=== PATIENT | female | born 1950 | race Caucasian/White ===

== ENCOUNTER 2024-02-15 08:00 | Outpatient (CLI) | payer MEDICAID, MEDICARE ==
--- NOTE | 2024-02-15 13:49 | XRAY Report ---
PROCEDURE: Chest 2V INDICATIONS: SHORTNESS OF BREATH/ASTHMA TECHNIQUE: 2 views of the chest were acquired. COMPARISON: None. FINDINGS: Surgical changes and devices: None. Lungs and pleura: No pleural effusions or pneumothorax. Lungs are borderline hyperexpanded and tu r. Mediastinum: Mediastinal contours appear normal. Heart size is normal. Bones and chest wall: No suspicious bony lesions. Overlying soft tissues appear unremarkable. IMPRESSION: No acute cardiopulmonary process. Reviewed by: Young Vann MD on 02/15/2024 1:48 PM PDT Approved by: Young Vann MD on 02/15/2024 1:48 PM PDT Station ID: [id number]
== END 2024-02-15 23:59 | disposition home or self-care (01) ==
LOC: DI.S 08:00
PROVIDERS: ATTEND Emergency Medicine
DX: J45.901 Unspecified asthma with (acute) exacerbation (principal)

== ENCOUNTER 2024-02-15 12:36 | Outpatient (CLI) | payer MEDICARE, MEDICAID | END 2024-02-15 23:59 | disposition critical access hospital (66) | LOC: EMS 12:36 | DX: R06.02 Shortness of breath (principal); R06.2 Wheezing; Z59.02 Unsheltered homelessness | CPT/HCPCS: A0425; A0427 ==

== ENCOUNTER 2024-02-15 13:11 | Emergency (ER) | payer MEDICARE, MEDICAID ==
[2024-02-15 13:40] VITALS: BP 116/48; O2SAT 95
--- NOTE | 2024-02-15 13:41 | ED Physician Documentation ---
History of Present Illness - Stated complaint Stated Complaint: SOA - Chief complaint Chief Complaint: Resp - History obtained from History obtained from: Patient, EMS - Additonal information Additional information: The patient is sent to the emergency department via EMS by Dr. Wiseman from the walk-in clinic on self would be for chief complaint of "status asthmaticus". The patient states that she has had congestion and a cough for the last few days but that it seems to been making her increasingly short of breath. She does not know of any diagnosis of COPD or asthma and states she is not a smoker. She states that she has had a dry cough and no fevers. She currently lives in her car on a piece of property with her son and grandson. She is not sure exactly how long she has been living in her car but does not see any end in sight anytime soon. She states that generally she sleeps pretty well and there but that the cough has been keeping her awake at night. The patient denies any chest pain. She is denies any lower extremity edema. No other complaints at this time. According to Dr. Wiseman, the patient arrived with sats in the 80s and tight breath sounds and wheezing. He reported to me that he gave her 3 DuoNebs and 60 mg of prednisone, and did COVID test and chest x-ray, both of which were negative. The patient was still quite tight and wheezy, so he wanted to send her to us which I did except. The medics report that the patient has had a 100% oxygen saturation on room air the entire transport and that she has refused a DuoNeb they started, secondary to already feeling better and the DuoNeb making her cough. Vital stable and route per medics. PD PAST MEDICAL HISTORY - Allergies Allergies/Adverse Reactions: Allergies Allergy/AdvReac Type Severity Reaction Status Date / Time No Known Drug Allergies Allergy Verified 02/15/24 13:58 - Social History Does the pt smoke?: Yes Smoking Status: Current every day smoker PD ED PE NORMAL - Vitals Vital signs reviewed: Yes - General General: Alert and oriented X 3, No acute distress, Well developed/nourished, Other (Overall well-appearing.) - HEENT HEENT: Atraumatic, PERRL, EOMI, Moist mucous membranes - Neck Neck: Supple, no meningeal sign - Cardiac Cardiac: RRR, No murmur, Strong equal pulses - Respiratory Respiratory: No respiratory distress, Other (Mild expiratory rhonchi and wheezes, slightly prolonged expiratory phase with respiratory exam but not at rest or while talking.) - Abdomen Abdomen: Soft, Non tender, Non distended - Derm Derm: Normal color, Warm and dry, No rash - Extremities Extremities: No deformity, No edema, No calf tenderness / cord - Neuro Neuro: claim approver 2-12 intact, No motor deficit, No sensory deficit, Normal speech, Other (Alert, well-appearing, grossly intact) - Psych Psych: Normal mood, Normal affect Results - Vitals Vitals: Oxygen O2 Source Room air PD Medical Decision Making - ED course Complexity details: reviewed old records, reviewed results, re-evaluated patient, considered differential, d/w patient ED course: The pt was feeling much better after the treatment at the walk-in clinic, and had no complaints. She was irritated at being sent to the ED, and stated she did not feel that she needed to be here. I did not feel that further treatment was indicated. We have discussed symptomatic management at home. I have reviewed her d/c papers, and found that Dr. Wiseman already sent in prescriptions for MDI, prednisone, and abx. We have discussed the usual indications for return. Departure - Departure Disposition: 01 Home, Self Care Clinical Impression: Viral syndrome Reactive airway disease with acute exacerbation Qualifiers: Asthma severity: mild Asthma persistence: intermittent Qualified Code(s): J45.21 - Mild intermittent asthma with (acute) exacerbation Condition: Stable Instructions: ED Reactive Airway Disease, ED Viral Syndrome Comments: Your oxygen looks great here at 95% on regular air. You are breathing comfortably while sitting and talking and although you have some mild wheezing, your lungs are actually moving air through pretty well. It looks like Dr. Wiseman's treatment in the clinic has finally taken effect and there is really not much else to do. You already had a chest x-ray done over there which was negative. Dr. Wiseman has already sent prescriptions to the [facility] in [place] for an albuterol inhaler, steroid course, and an antibiotic. All these are requested to be generic. At this point, there is nothing more for us to do in the emergency department and since you are doing better, we will let you go home. Please follow-up with your primary doctor to discuss your breathing status. Please also reach out to [facility] to get help with your living situation. You should return to the emergency department if you develop any severe shortness of breath or any other concerns. Forms: PCP List Discharge Date/Time: 02/15/24 14:06
== END 2024-02-15 14:06 | disposition home or self-care (01) ==
LOC: EDUNIT# → ED 13:11
DX: B34.9 Viral infection, unspecified (principal); J45.21 Mild intermittent asthma with (acute) exacerbation; Z59.02 Unsheltered homelessness
CPT/HCPCS: 99282; 99283

== ENCOUNTER 2024-02-23 23:09 | Outpatient (CLI) | payer MEDICAID, MEDICARE | END 2024-02-23 23:59 | disposition left against medical advice (07) | LOC: EMS 23:09 | DX: R05.8 Other specified cough (principal); Z59.02 Unsheltered homelessness ==

== ENCOUNTER 2024-02-29 08:00 | Outpatient (CLI) | payer MEDICARE ==
--- NOTE | 2024-02-29 18:43 | XRAY Report ---
PROCEDURE: Chest 2V INDICATIONS: ASTHMATIC BRONCHITIS TECHNIQUE: 2 views of the chest were acquired. COMPARISON: Chest radiograph on February 15, 2024. FINDINGS: Surgical changes and devices: None. Lungs and pleura: No pleural effusions or pneumothorax. Bilateral diffuse interstitial prominence wh ich is more conspicuous compared to prior. Mild bilateral bronchial wall thickening. Mediastinum: Mediastinal contours appear normal. Heart size is normal. Bones and chest wall: No suspicious bony lesions. Overlying soft tissues appear unremarkable. Mild multilevel degenerative changes of the spine. IMPRESSION: 1.Mild bilateral perihilar bronchial wall thickening which may reflect reactive airways disease and/o r viral pneumonia. No focal pulmonary consolidation. 2.Mild diffuse interstitial prominence suggestive of mild pulmonary edema. Reviewed by: Estella Aviles MD on 02/29/2024 6:41 PM PDT Approved by: Estella Aviles MD on 02/29/2024 6:41 PM PDT Station ID: [id number]
== END 2024-02-29 23:59 | disposition home or self-care (01) ==
LOC: DI.S 08:00
PROVIDERS: ATTEND Emergency Medicine
DX: J45.909 Unspecified asthma, uncomplicated (principal); R91.8 Other nonspecific abnormal finding of lung field

== ENCOUNTER 2024-02-29 18:15 | Outpatient (CLI) | payer MEDICARE | END 2024-02-29 18:16 | disposition critical access hospital (66) | LOC: EMS 18:15 | DX: J18.9 Pneumonia, unspecified organism (principal); Z91.148 Patient's other noncompliance with medication regimen for other reason | CPT/HCPCS: A0425; A0429 ==

== ENCOUNTER 2024-02-29 18:47 | Emergency (ER) | payer MEDICARE ==
--- NOTE | 2024-02-29 19:03 | ED Physician Documentation ---
PD HPI DYSPNEA - Stated complaint Stated Complaint: PNA - History obtained from History obtained from: Patient - Additional information Additional information: 73-year-old woman with COPD, continues to smoke. She has been sick most of this month and was seen by my partner about 2 weeks ago with a clear chest x-ray and she was placed on Augmentin and prednisone. She did not take the prednisone due to side effects but says she did complete the Augmentin. That said, looking at the chart, specifically EMS run sheets, she may have been noncompliant with that. She went to the clinic today not worse per se but not better either. I was took a call from Dr. Dhillon prior to arrival telling me that she had "severe bilateral pneumonia." The official read on her x-ray from this morning is as follows: 1.Mild bilateral perihilar bronchial wall thickening which may reflect reactive airways disease and/or viral pneumonia. No focal pulmonary consolidation. 2.Mild diffuse interstitial prominence suggestive of mild pulmonary edema. PD PAST MEDICAL HISTORY - Present Medications Home Medications: Ambulatory Orders Medication Instructions Recorded Confirmed Doxycycline [Vibramycin] 100 mg PO BID #14 tablet 02/29/24 dexAMETHasone [Decadron] 4 mg PO BIDWM #10 tablet 02/29/24 - Allergies Allergies/Adverse Reactions: Allergies Allergy/AdvReac Type Severity Reaction Status Date / Time No Known Drug Allergies Allergy Verified 02/29/24 18:55 - Social History Does the pt smoke?: Yes Smoking Status: Current every day smoker PD ED PE NORMAL - Vitals Vital signs reviewed: Yes - General General: Alert and oriented X 3, No acute distress, Other (Sats in the low 90s on room air in no respiratory distress but occasional cough.) - Cardiac Cardiac: RRR, No murmur - Respiratory Respiratory: No respiratory distress, Other (Rhonchorous throughout without focal findings.) - Derm Derm: Normal color, Warm and dry - Extremities Extremities: No edema, No calf tenderness / cord - Neuro Neuro: Alert and oriented X 3, Normal speech Results - Vitals Vitals: Vital Signs - 24 hr 02/29/24 18:55 Temperature 36.5 C Heart Rate 97 Respiratory 17 Rate Blood Pressure 186/80 H O2 Saturation 93 Oxygen O2 Source Room air PD Medical Decision Making - ED course ED course: She presents with a COPD exacerbation and may be viral versus mild atypical pneumonia. She was encouraged to take steroids but she is hesitant given the side effects. Will change her over to dexamethasone and an antibiotic with at ypical coverage and received a DuoNeb here. No hypoxemia and, no respiratory distress. Departure - Departure Disposition: 01 Home, Self Care Clinical Impression: COPD exacerbation Condition: Good Record reviewed to determine appropriate education?: Yes Instructions: ED COPD Flare Prescriptions: dexAMETHasone [Decadron] 4 mg PO BIDWM #10 tablet Doxycycline [Vibramycin] 100 mg PO BID #14 tablet Comments: Your chest x-ray this morning demonstrated ": 1.Mild bilateral perihilar bronchial wall thickening which may reflect reactive airways disease and/or viral pneumonia. No focal pulmonary consolidation. 2.Mild diffuse interstitial prominence suggestive of mild pulmonary edema. I sent your prescriptions electronically to [facility] in [place]. Call your doctor to arrange a follow-up appointment, make the next available appointment. In the interim, return anytime if worse or if new symptoms develop.
[2024-02-29] MEDS: IPRATROPIUM/ALBUTEROL 3 ML NEB INH STA (19:13)
[2024-02-29 19:15] VITALS: BP 186/80; O2SAT 93
[2024-02-29] MEDS: CHERRY SYRUP 10 ML UDC PO ONE (19:19)
[2024-02-29] MEDS: DEXAMETHASONE 10 MG/ML VIAL PO STA (19:19)
[2024-02-29] MEDS: ACETAMINOPHEN 500 MG TABLET PO STA (19:20)
[2024-02-29] MEDS: DOXYCYCLINE 100 MG TABLET PO STA (19:20)
== END 2024-02-29 19:53 | disposition home or self-care (01) ==
LOC: EDUNIT# → EDSEX → ED 18:47
DX: J44.1 Chronic obstructive pulmonary disease with (acute) exacerbation (principal); Z91.148 Patient's other noncompliance with medication regimen for other reason
CPT/HCPCS: 71046; 99283; 99284; A9270

== ENCOUNTER 2024-03-01 00:29 | Outpatient (CLI) | payer MEDICARE | END 2024-03-01 00:30 | disposition EMS.NT | LOC: EMS 00:29 | DX: Z03.89 Encounter for observation for other suspected diseases and conditions ruled out (principal); Z59.02 Unsheltered homelessness ==

== ENCOUNTER 2024-03-02 10:17 | Outpatient (CLI) | payer MEDICARE | END 2024-03-02 23:59 | disposition EMS.NT | LOC: EMS 10:17 | DX: R06.02 Shortness of breath (principal); Z59.02 Unsheltered homelessness ==